=== PATIENT | male | born 1995 | race American Indian/Alaskan Native ===

== ENCOUNTER 2017-02-12 17:02 | Emergency (ER) | payer SELFPAY ==
[2017-02-12 18:14] LABS: Bilirubin,Urine NEG (Negative); Blood,Urine NEG (Negative); Ketones,Urine NEG (Negative); Leukocyte Esterase,Urine NEG (Negative); Mucus,Urine 2+ /HPF; Nitrite,Urine NEG (Negative); Protein,Urine <15 mg/dL mg/dL (Negative); Urobilinogen,Urine < 2.0 mg/dL (<2.0)
--- NOTE | 2017-02-12 18:45 | Ultrasound Report ---
FINAL REPORT EXAM: US TESTICULAR DOPPLER COMP HISTORY: testicular pain , reported history of torsion COMPARISONS: None. FINDINGS: Grayscale, color and spectral Doppler ultrasound evaluation of the testicles The right testicle measures 4 x 1.8 x 2.8 cm and demonstrates normal echotexture, color and spectral Doppler evaluation. No intra or extratesticular mass. Epididymal head is within normal limits. The left testicle measures 3.8 x 1.3 x 2.7 cm and demonstrates normal echotexture, color and spectral Doppler evaluation. No intra or extratesticular mass. Epididymal head is within normal limits. IMPRESSION: Unremarkable testicular ultrasound. Given history of torsion, please correlate with history of orchiopexy and consider follow-up as warranted.
--- NOTE | 2017-02-12 19:15 | Emergency Department Report ---
Entered by ARIES MATAMOROS, acting as scribe for KAT IRELAND PA. ED Male HPI - General Chief complaint: Urogenital-Male Stated complaint: TESTICULAR PAIN Time Seen by Provider: 02/12/17 17:48 Source: patient Mode of arrival: Ambulatory Limitations: No Limitations - History of Present Illness Initial comments: Pt is a 21 y.o. male with a hx of testicular torsion (most recently two years ago) who presents to ED c/o one week hx of bilateral testicular pain with associated mild lower abdominal pain and right lower back pain. He describes his constant, 8/10 pain as like his testicles were "hit with a hammer". He reports aggravation of his pain with his testicles rubbing against his jeans and with palpation. He denies fever, chills, N/V, penile discharge, dysuria, urgency, or frequency, as well as concern for STDs. MD Complaint: testicle pain (bilateral) -: week(s) (1 week ago) Location: right testicle, left testicle, abdomen (lower abdominal pain) Severity scale (0 -10): 8 Quality: other (like his testicles were hit with a hammer) Consistency: constant Improves with: none Worsens with: palpation, other (his testicles rubbing against his jeans) other (lower abdominal pain). denies: discharge, swelling, mass, rash, urinary retention, blood in urine, dysuria, fever, nausea/vomiting, incontinence - Related Data Sexually active: Yes (No concern for STDs.) Allergies Allergy/AdvReac Type Severity Reaction Status Date / Time No Known Allergies Allergy Unverified 02/12/17 17:30 ED Review of Systems Comment: All other systems reviewed and negative Constitutional: no symptoms reported. denies: chills, diaphoresis, fever Eyes: denies: eye pain ENT: denies: ear pain, throat pain Respiratory: denies: cough, shortness of breath, SOB with exertion, SOB at rest , wheezing Cardiovascular: denies: chest pain, palpitations, dyspnea on exertion, edema, syncope Gastrointestinal: abdominal pain (lower abdominal pain). denies: nausea, vomiting, diarrhea, constipation Genitourinary: testicular pain (bilateral), other (Negative for penile discharge. Negative for penile pain. ). denies: urgency, dysuria, frequency, hematuria, discharge, testicular mass Musculoskeletal: back pain (right lower). denies: joint swelling, arthralgia, myalgia Skin: denies: rash, lesions, change in color, change in hair/nails, pruritus Neurological: denies: headache, numbness, paresthesias ED Past Medical Hx - Past Medical History Hx Asthma: Yes Additional medical history: testicular torsion - Surgical History Past Surgical History?: No - Social History Smoking Status: Current Every Day Smoker Substance Use Type: None ED Physical Exam - General Limitations: No Limitations General appearance: alert, in no apparent distress - Head Head exam: Present: atraumatic, normocephalic, normal inspection - Eye Eye exam: Present: normal appearance, PERRL, EOMI. Absent: scleral icterus, conjunctival injection Pupils: Present: normal accommodation - ENT ENT exam: Present: normal orophraynx, mucous membranes moist, TM's normal bilaterally, normal external ear exam, other (Mouth: Moist, no pharyngeal exudate or erythema. Uvula is midline and oral airway is patent. No facial swelling. No peritonsillar abscesses. Nose: Normal external appearance, no drainage. Maxillary and frontal sinuses nontender. ) - Neck Neck exam: Present: normal inspection, full ROM, other (Supple, no C-spine tenderness, no tracheal deviation. Nontender to palpation. no adenopathy). Absent: tenderness, meningismus, lymphadenopathy - Respiratory Respiratory exam: Present: normal lung sounds bilaterally, other (Normal work of breathing. ). Absent: respiratory distress, wheezes, rales, rhonchi, stridor , chest wall tenderness, accessory muscle use, decreased breath sounds, prolonged expiratory - Cardiovascular Cardiovascular Exam: Present: regular rate, normal rhythm, normal heart sounds. Absent: systolic murmur, diastolic murmur, rubs, gallop - GI/Abdominal GI/Abdominal exam: Present: soft, normal bowel sounds. Absent: distended, tenderness, guarding, rebound, rigid, organomegaly, mass, bruit, pulsatile mass , hernia - exam: Present: testicular tenderness, circumcision, other (TTP at right and left testicle. No palpable masses or nodules. No erythema. Circumcized male. Penile shaft is normal. Cremasteric reflex is present. No lesions or rash. No penile discharge. ). Absent: normal inspection, urethral discharge, scrotal swelling External exam: Absent: erythema, swelling, lesions, lacerations, ecchymosis, bleeding - Expanded Exam Expanded Male exam: Absent: phimosis, paraphimosis, penile swelling, lesions, induration, erythema, perineal induration, balanitis, priapism exam: Testicular Tenderness: Left, Right, Cremasteric Reflex Present: Left, Right - Extremities Exam Extremities exam: Present: normal inspection, full ROM, normal capillary refill , other (No CCE. +2 pulses. No neurovascular compromise.). Absent: tenderness , pedal edema, joint swelling, calf tenderness - Back Exam Back exam: Present: normal inspection, full ROM, CVA tenderness (R). Absent: tenderness, CVA tenderness (L), muscle spasm, paraspinal tenderness, vertebral tenderness, rash noted - Neurological Exam Neurological exam: Present: alert, oriented X3, normal gait - Psychiatric Psychiatric exam: Present: normal affect, normal mood - Skin Skin exam: Present: warm, dry, intact, normal color, other (No lesions.). Absent: rash, cyanosis, erythema, urticaria, vesicles, pallor, abrasion, ecchymosis ED Course Vital Signs 02/12/17 17:23 Temperature 98.8 F Pulse Rate 73 Respiratory 18 Rate Blood Pressure 134/78 O2 Sat by Pulse 100 Oximetry - Reevaluation(s) Reevaluation #1: 02/12/17 18:15 Patient is stable, did not want anything for pain. Urinalysis because patient said he has back pain. Awaiting ultrasound. ED Medical Decision Making - Lab Data Lab Results 02/12/17 Range/Units 17:59 Urine Color Yellow (Yellow) Urine Turbidity Clear (Clear) Urine pH 5.0 (5.0-7.0) Ur Specific Watson 1.025 (1.003-1.030) Urine Protein <15 mg/dl (Negative) mg/dL Urine Glucose (UA) Neg (Negative) mg/dL Urine Ketones Neg (Negative) mg/dL Urine Blood Neg (Negative) Urine Nitrite Neg (Negative) Urine Bilirubin Neg (Negative) Urine Urobilinogen < 2.0 (<2.0) mg/dL Ur Leukocyte Esterase Neg (Negative) Urine WBC (Auto) 1.0 (0.0-6.0) /HPF Urine RBC (Auto) 3.0 (0.0-6.0) /HPF Urine Mucus 2+ /HPF - Radiology Data Radiology results: report reviewed Testicular ultrasound unremarkable. Normal blood flow. No torsion seen. - Medical Decision Making ED course: Pt here complaining of testicular pain for since last week. He said he has multiple history of torsion and he is concerned. Denies any penile discharge but reports back pain and no abdominal pain. No concerns for STDs. Urinalysis normal. Testicular ultrasound unremarkable. No mass, No torsion. Results of u/s and urinalysis discussed with patient and I told him he will need to follow-up with urologist and his primary care physician regarding testicular pain. Patient did not want anything for pain in emergency room. Patient discharged home and his family in stable condition. ED Disposition Clinical Impression: Testicular pain, History of torsion of testis Lower back pain Qualifiers: Chronicity: acute Back pain laterality: bilateral Sciatica presence: without sciatica Qualified Code(s): M54.5 - Low back pain Disposition: - TO HOME OR SELFCARE Is pt being admited?: No Does the pt Need Aspirin: No Condition: Stable Instructions: Testicle Pain (ED), Acute Low Back Pain (ED) Additional Instructions: Please increase her fluid intake Need to follow-up with urologist regarding testicular torsion history Referrals: [facility] [Provider Group] - 2-3 Days [facility] [Outside] - 3-5 Days Forms: Accompanied Note, Work/School Release Form(ED) This documentation as recorded by the SHILOH barry KELLY,accurately reflects the service I personally performed and the decisions made by me,KAT IRELAND PA.
[2017-02-13 00:13] VITALS: BP 129/65
== END 2017-02-12 19:20 | disposition home or self-care (01) ==
LOC: ED 17:02
DX: N50.811 Right testicular pain (principal); N50.812 Left testicular pain; R10.30 Lower abdominal pain, unspecified; M54.5 Low back pain; J45.909 Unspecified asthma, uncomplicated; F17.210 Nicotine dependence, cigarettes, uncomplicated
CPT/HCPCS: 81001; 87086; 93975; 99284

== ENCOUNTER 2017-05-22 10:54 | Emergency (ER) | payer SELFPAY ==
--- NOTE | 2017-05-22 13:17 | Ultrasound Report ---
ULTRASOUND SCROTAL INDICATION: Testicular pain. COMPARISON: 02/12/2017. FINDINGS: Longitudinal and transverse grayscale and color flow sonographic evaluation of the scrotum and its contents demonstrates normal testicular contour bilaterally without suspicious focal intrinsic lesions. Few tiny intratesticular echogenicities/calcifications may again be noted bilaterally. Preserved bilateral blood flow. Right testicle estimated at 4.3 x 1.8 x 2.6 cm while the left testicle is 3.7 x 1.6 x 2.8 cm. Small bilateral hydroceles. Normal epididymal heads bilaterally, measuring approximately 5 mm. Left epididymal tail is slightly more prominent at 8 mm as on image 33, amongst others, though not demonstrated hypervascular. CONCLUSION: 1. No sonographic evidence of testicular torsion. Subtle left epididymal tail prominence nonspecific and not entirely excluded for minimal epididymitis in an appropriate setting. Please correlate. 2. Small bilateral hydroceles and slight microlithiasis incidentally noted. Thank you for the opportunity to participate in this patient's care.
[2017-05-22] MEDS ORDERED: ZITHROMAX PO ONE (15:07)
[2017-05-22] MEDS ORDERED: XYLOCAINE 1% MPF 5 mL INFILTRATI ONE (15:07)
[2017-05-22] MEDS ORDERED: ROCEPHIN IM ONE (15:07)
[2017-05-22] MEDS ORDERED: MOTRIN PO ONE (15:09)
--- NOTE | 2017-05-22 15:11 | Emergency Department Report ---
ED Male HPI - General Chief complaint: Urogenital-Male Stated complaint: TESTICULAR PROBLEM Source: patient Mode of arrival: Ambulatory Limitations: No Limitations - History of Present Illness Initial comments: 21-year-old male past medical history testicular torsion presents with complaint of 2 days of left testicular discomfort. Patient states that he feels a small slightly irritated mass in his left scrotal region. Denies any dysuria denies abdominal pain denies any fevers or chills denies any direct trauma to scrotum or testicles. Denies any discoloration denies any increased urinary frequency and/or penile discharge. Denies any external genitourinary rash. Is awake alert and oriented 3 nontoxic-appearing and not in acute distress. MD Complaint: testicle pain Onset/Timin -: days(s) Location: left testicle Radiation: none Severity: mild Severity scale (0 -10): 2 Quality: aching Consistency: intermittent Worsens with: palpation denies other symptoms - Related Data Previous Rx's Medication Instructions Recorded Last Taken Type Ibuprofen [Motrin] 800 mg PO Q8HR PRN #30 tablet 05/22/17 Unknown Rx Allergies Allergy/AdvReac Type Severity Reaction Status Date / Time No Known Allergies Allergy Unverified 02/12/17 17:30 ED Review of Systems ROS: Stated complaint: TESTICULAR PROBLEM Other details as noted in HPI Constitutional: denies: chills, fever Eyes: denies: eye pain, eye discharge, vision change ENT: denies: ear pain, throat pain Respiratory: denies: cough, shortness of breath, wheezing Cardiovascular: denies: chest pain, palpitations Endocrine: no symptoms reported Gastrointestinal: denies: abdominal pain, nausea, diarrhea Genitourinary: as per HPI, testicular pain (left testicle discomfort). denies: urgency, dysuria Musculoskeletal: denies: back pain, joint swelling, arthralgia Skin: denies: rash, lesions Neurological: denies: headache, weakness, paresthesias Psychiatric: denies: anxiety, depression Hematological/Lymphatic: denies: easy bleeding, easy bruising ED Past Medical Hx - Past Medical History Hx Asthma: Yes Additional medical history: testicular torsion - Social History Smoking Status: Current Every Day Smoker Substance Use Type: None - Medications Home Medications: Home Medications Medication Instructions Recorded Confirmed Last Taken Type Ibuprofen [Motrin] 800 mg PO Q8HR PRN #30 tablet 05/22/17 Unknown Rx ED Physical Exam - General Limitations: No Limitations General appearance: alert, in no apparent distress - Head Head exam: Present: atraumatic, normocephalic - Eye Eye exam: Present: normal appearance, PERRL, EOMI - ENT ENT exam: Present: mucous membranes moist - Neck Neck exam: Present: normal inspection - Respiratory Respiratory exam: Present: normal lung sounds bilaterally. Absent: respiratory distress - Cardiovascular Cardiovascular Exam: Present: regular rate, normal rhythm. Absent: systolic murmur, diastolic murmur, rubs, gallop - GI/Abdominal GI/Abdominal exam: Present: soft, normal bowel sounds - Rectal Rectal exam: Present: deferred - exam: Present: normal inspection, testicular tenderness (some reproducible to left testicular tenderness on palpation of left testicle. No clinical signs of erythema or cellulitis or significant swelling crepitus on exam of the perineum) External exam: Present: normal external exam - Extremities Exam Extremities exam: Present: normal inspection - Back Exam Back exam: Present: normal inspection - Neurological Exam Neurological exam: Present: alert, oriented X3, CN II-XII intact, normal gait - Psychiatric Psychiatric exam: Present: normal affect, normal mood - Skin Skin exam: Present: warm, dry, intact, normal color. Absent: rash ED Course Vital Signs 05/22/17 11:41 Temperature 98.5 F Pulse Rate 76 Respiratory 16 Rate Blood Pressure 140/83 O2 Sat by Pulse 100 Oximetry ED Medical Decision Making - Medical Decision Making A/P: Acute epididymal orchitis left testicle 1-will treat empirically as per [email or web address] recommendations. Patient has no clinical symptoms of prostatitis on exam 2-urine culture sent, SANTOS martinez sent 3-follow-up with primary care and urology Critical care attestation.: If time is entered above; I have spent that time in minutes in the direct care of this critically ill patient, excluding procedure time. ED Disposition Clinical Impression: Acute epididymitis Disposition: TO HOME OR SELFCARE Is pt being admited?: No Does the pt Need Aspirin: No Condition: Stable Instructions: Epididymitis (ED) Prescriptions: Ibuprofen [Motrin] 800 mg PO Q8HR PRN #30 tablet PRN Reason: Pain Referrals: [facility] [Outside] - 3-5 Days [facility] [Provider Group] - 3-5 Days [facility] [Provider Group] - 3-5 Days Forms: STI Treatment and Prevention, Accompanied Note, Work/School Release Form (ED) Time of Disposition: 15:10
[2017-05-22 15:41] VITALS: BP 136/81
[2017-05-22 15:58] LABS: Bilirubin,Urine NEG (Negative); Blood,Urine NEG (Negative); Ketones,Urine NEG (Negative); Leukocyte Esterase,Urine NEG (Negative); Mucus,Urine FEW /HPF; Nitrite,Urine NEG (Negative); Protein,Urine <15 mg/dL mg/dL (Negative); RBC,Urine < 1.0 /HPF (0.0-6.0); Urobilinogen,Urine < 2.0 mg/dL (<2.0)
== END 2017-05-22 15:39 | disposition home or self-care (01) ==
LOC: ED 10:54
DX: N45.1 Epididymitis (principal); J45.909 Unspecified asthma, uncomplicated; F17.200 Nicotine dependence, unspecified, uncomplicated
CPT/HCPCS: 81001; 87086; 87591; 93975; 96372; 99284; J0696

== ENCOUNTER 2017-08-31 15:22 | Emergency (ER) | payer SELFPAY ==
[2017-08-31 16:18] VITALS: BP 125/79
[2017-08-31 17:09] LABS: Basophils % (Auto) 0.4 % (0.0-1.8); Eosinophils # (Auto) 0.3 K/mm3 (0.0-0.4); Eosinophils % (Auto) 4.1 % (0.0-4.3); Hematocrit 47.2 % (35.5-45.6); Hemoglobin 15.5 gm/dl (11.8-15.2); Lymphocytes # (Auto) 2.5 K/mm3 (1.2-5.4); Lymphocytes % (Auto) 36.5 % (13.4-35.0); Mean Corpuscular HGB Conc 33 % (32-34); Mean Corpuscular Hemoglobin 27 pg (28-32); Mean Corpuscular Volume 81 fl (84-94); Monocytes # (Auto) 0.6 K/mm3 (0.0-0.8); Monocytes % (Auto) 8.1 % (0.0-7.3); Platelet Count 203 K/mm3 (140-440); Red Blood Count 5.84 M/mm3 (3.65-5.03)
[2017-08-31 17:29] LABS: Alanine Aminotransferase 13 units/L (7-56); Albumin 4.4 g/dL (3.9-5); BUN/Creatinine Ratio 17; Blood Urea Nitrogen 17 mg/dL (9-20); Calcium 9.3 mg/dL (8.4-10.2); Hemolysis Index 14; Lipase 31 units/L (13-60)
[2017-08-31 19:48] LABS: Bilirubin,Urine NEG (Negative); Blood,Urine NEG (Negative); Color,Urine Yellow (Yellow); Mucus,Urine FEW /HPF; Nitrite,Urine NEG (Negative); Protein,Urine <15 mg/dL mg/dL (Negative)
== END 2017-08-31 22:00 | disposition left against medical advice (07) ==
LOC: ED 15:22
DX: Z53.21 Procedure and treatment not carried out due to patient leaving prior to being seen by health care provider (principal)
CPT/HCPCS: 36415; 80053; 81001; 83690; 85025

== ENCOUNTER 2017-09-03 17:36 | Emergency (ER) | payer SELFPAY ==
[2017-09-03 18:08] VITALS: BP 112/68
[2017-09-03 18:51] LABS: Bilirubin,Urine NEG (Negative); Blood,Urine NEG (Negative); Color,Urine Yellow (Yellow); Mucus,Urine FEW /HPF; Nitrite,Urine NEG (Negative); Protein,Urine <15 mg/dL mg/dL (Negative)
[2017-09-03 19:56] LABS: Basophils # (Auto) 0.1 K/mm3 (0.0-0.1); Basophils % (Auto) 0.9 % (0.0-1.8); Eosinophils # (Auto) 0.2 K/mm3 (0.0-0.4); Eosinophils % (Auto) 3.5 % (0.0-4.3); Hematocrit 42.3 % (35.5-45.6); Hemoglobin 13.7 gm/dl (11.8-15.2); Lymphocytes # (Auto) 3.1 K/mm3 (1.2-5.4); Mean Corpuscular HGB Conc 32 % (32-34); Mean Corpuscular Hemoglobin 26 pg (28-32); Mean Corpuscular Volume 81 fl (84-94); Monocytes # (Auto) 0.5 K/mm3 (0.0-0.8); Monocytes % (Auto) 8.6 % (0.0-7.3); Platelet Count 174 K/mm3 (140-440); Red Cell Distribution Width 15.2 % (13.2-15.2)
[2017-09-03 20:08] LABS: Alanine Aminotransferase 12 units/L (7-56); Albumin 4.2 g/dL (3.9-5); BUN/Creatinine Ratio 20; Blood Urea Nitrogen 18 mg/dL (9-20); Calcium 9.1 mg/dL (8.4-10.2); Hemolysis Index 19
== END 2017-09-04 03:35 | disposition left against medical advice (07) ==
LOC: ED 17:36
DX: R10.9 Unspecified abdominal pain (principal); R11.10 Vomiting, unspecified; Z53.21 Procedure and treatment not carried out due to patient leaving prior to being seen by health care provider
CPT/HCPCS: 36415; 80053; 81001; 85025